=== PATIENT | female | born 1945 | race African-American/Black ===

== ENCOUNTER 2020-11-26 18:56 | Inpatient (IN) | payer OTHER, MEDICAID ==
[~2020-11-26] VITALS: Ht 152.4 cm; Wt 82.6 kg
[~2020-11-26 18:56] MED LIST: AMLO10TA80 PO; AMOX1TAB16 PO; ASCO500C15 PO; ATOR20TA65 PO; DOXA2TAB2 PO; FURO-151 PO; HYDR-4001 PO; HYDR100T26 PO; LISI-186 PO; METO-385 PO; P20 PO; SITA50TA3 PO
[2020-11-26] MEDS ORDERED: IPRATROPIUM BROMIDE (0.02%) 0.5MG/2.5ML NEB HHN STA (19:21)
[2020-11-26] MEDS ORDERED: METHYLPREDNISOLONE SOD SUCC 125 MG/2 ML VIAL IV STA (19:21)
[2020-11-26] MEDS ORDERED: ALBUTEROL (0.083%) 2.5MG/3ML NEB HHN STA (19:21)
[2020-11-26] MEDS ORDERED: MAGNESIUM 2 G PREMIX 50 ML IV STA (19:21)
[2020-11-26 20:48] LABS: BASOPHILS % 0.5 % (0.0-2.0); EOSINOPHILS % 0.7 % (0.0-5.0); HEMATOCRIT. 39.9 % (36.0-48.0); HEMOGLOBIN. 13.3 g/dL (12.0-16.0); LYMPHOCYTES % 23.9 % (20.0-50.0); MEAN CORPUSCULAR HEMOGLOBIN 28.8 pg (28.0-32.0); MEAN CORPUSCULAR VOLUME 86.6 fL (81.0-99.0); MEAN PLATELET VOLUME 7.2 fl (7.4-10.4); MONOCYTES % 4.8 % (2.0-8.0); NEUTROPHILS % 70.1 % (40.0-76.0); PLATELET 199 x1000/uL (130-400); RED BLOOD CELL COUNT 4.61 mill/uL (4.2-5.4)
[2020-11-26 20:56] LABS: CHLORIDE 110 mEq/L (98-107)
[2020-11-26 20:57] LABS: PROTHROMBIN TIME 11.1 sec (9.6-11.0)
[2020-11-26] MEDS ORDERED: FUROSEMIDE 40MG/4ML VIAL IVP ONE (21:30)
[2020-11-27] MEDS ORDERED: DILTIAZEM HCL 5MG/ML 5ML VIAL IV ONE (00:15)
[2020-11-27] MEDS ORDERED: HEPARIN 5000 UNITS/ML VIAL IV SCH (00:30)
[2020-11-27] MEDS ORDERED: HEPARIN 25,000 UNITS PREMIX 250 ML IV PRN (00:30)
[2020-11-27] MEDS ORDERED: HEPARIN 25,000 UNITS PREMIX 250 ML IV SCH (01:00)
[2020-11-27] MEDS ORDERED: HEPARIN BOLUS PRN aPTT 30-44 IV (01:00)
[2020-11-27] MEDS ORDERED: HEPARIN BOLUS PRN aPTT <30 IV (01:00)
[2020-11-27] MEDS ORDERED: HEPARIN 60 UNITS/KG BOLUS IV SCH (01:00)
[2020-11-27] MEDS ORDERED: ONDANSETRON HCL 4MG/2ML INJ IV PRN (09:15)
[2020-11-27] MEDS ORDERED: NALOXONE HCL 0.4MG/ML VIAL IV PRN (09:15)
[2020-11-27] MEDS ORDERED: MORPHINE SULFATE 2 MG/ML CPJ (NOT FOR IM USE) IV PRN (09:15)
[2020-11-27] MEDS ORDERED: IPRATROPIUM/ALBUTEROL 0.5-3(2.5)MG/3ML NEB HHN PRN (09:15)
[2020-11-27] MEDS ORDERED: DIPHENHYDRAMINE 50MG/ML VIAL IV PRN (09:15)
[2020-11-27 09:30] VITALS: BP 120/52
[2020-11-27 11:57] LABS: BG BASE EXCESS -6.6 mmol/L (-2.0-2.0); BG CARBOXYHEMOGLOBIN 0.5 % (0.5-1.5); BG DEOXYHEMOGLOBIN 3.5 % (0.0-5.0); BG FRACTION INSPIRED OXYGEN 36; BG HCO3 ACT 17.6 mmol/L (22.0-26.0); BG METHEMOGLOBIN 0.1 % (0.0-1.5); BG OXYGEN SATURATION 96.5 % (92.0-98.5); BG OXYHEMOGLOBIN 95.9 % (94.0-97.0); BG PCO2 31.5 mmHg (35.0-45.0); BG PH 7.365 (7.350-7.450); BG PO2 87.2 mmHg (75.0-100.0); BG SAMPLE SITE LEFT BRACHIAL; BG VENT MODE NASAL CANNULA
[2020-11-27 12:00] VITALS: BP 126/55
[2020-11-27] MEDS ORDERED: DEXTROSE 50% WATER 50ML SYRINGE IV PRN ×2 (13:00)
[2020-11-27] MEDS: INSULIN LISPRO 100 UNITS/ML SUBCUT SCH ×3 (13:28→21:00)
[2020-11-27 16:00] VITALS: BP 150/65
[2020-11-27 16:20] LABS: CREATINE KINASE MB FRACTION 11.2 ng/mL (0.5-3.6)
[2020-11-27] MEDS: BLOOD SUGAR DIAGNOSTIC STRIP TEST SCH ×2 (17:20→21:29)
[2020-11-27 20:00] VITALS: BP 193/72
[2020-11-27] MEDS ORDERED: LOPERAMIDE HCL 2MG CAPSULE PO PRN (21:00)
[2020-11-27] MEDS: DOXAZOSIN MESYLATE 2MG TABLET PO SCH (21:28)
[2020-11-27] MEDS: CLONIDINE 0.1MG TABLET PO PRN (21:28)
[2020-11-27 23:15] LABS: CREATINE KINASE MB FRACTION 12.3 ng/mL (0.5-3.6)
[2020-11-28] VITALS (11 sets, daily range): BP systolic 118–156; BP diastolic 45–84
[2020-11-28 02:52] LABS: HEMATOCRIT 38.1 % (36.0-48.0); HEMOGLOBIN 12.1 g/dL (12.0-16.0); PLATELET 164 x1000/uL (130-400); RED BLOOD CELL COUNT 4.33 mill/uL (4.2-5.4); RED CELL DISTRIBUTION WIDTH 14.5 % (11.6-14.6)
[2020-11-28 03:12] LABS: CHLORIDE 106 mEq/L (98-107)
[2020-11-28] MEDS: ACETAMINOPHEN 325MG TABLET PO PRN ×2 (04:14→10:17)
[2020-11-28] MEDS: BLOOD SUGAR DIAGNOSTIC STRIP TEST SCH ×4 (06:52→21:00)
[2020-11-28] MEDS ORDERED: FUROSEMIDE 40MG/4ML VIAL IVP SCH (08:00)
[2020-11-28] MEDS: PREDNISONE 20MG TABLET PO SCH ×2 (08:03→17:42)
[2020-11-28] MEDS: INSULIN LISPRO 100 UNITS/ML SUBCUT SCH ×4 (08:04→21:00)
[2020-11-28] MEDS ORDERED: HEPARIN 25,000 UNITS PREMIX 250 ML IV SCH ×2 (08:30→08:45)
[2020-11-28] MEDS ORDERED: HEPARIN BOLUS PRN aPTT 30-44 IV (08:45)
[2020-11-28] MEDS ORDERED: HEPARIN BOLUS PRN aPTT <30 IV (08:45)
[2020-11-28] MEDS ORDERED: LISINOPRIL 5MG TABLET PO SCH (09:00)
[2020-11-28] MEDS ORDERED: MEDICATION NOT ON FORMULARY EA (Sitagliptin Phosphate (Januvia) 1 TAB) PO SCH (09:00)
[2020-11-28] MEDS ORDERED: ATORVASTATIN CALCIUM 20MG TABLET PO SCH (09:00)
[2020-11-28] MEDS ORDERED: LIDOCAINE HCL 1% 20ML VIAL (Pyxis) INJ ONE (09:14)
[2020-11-28 09:45] LABS: BASOPHILS % 0.1 % (0.0-2.0); HEMATOCRIT. 34.5 % (36.0-48.0); HEMOGLOBIN. 11.2 g/dL (12.0-16.0); LYMPHOCYTES % 9.7 % (20.0-50.0); MEAN CORPUSCULAR HEMOGLOBIN 28.6 pg (28.0-32.0); MEAN CORPUSCULAR VOLUME 87.9 fL (81.0-99.0); MEAN PLATELET VOLUME 7.6 fl (7.4-10.4); MONOCYTES % 5.7 % (2.0-8.0); NEUTROPHILS % 84.5 % (40.0-76.0); PLATELET 175 x1000/uL (130-400); RED BLOOD CELL COUNT 3.92 mill/uL (4.2-5.4); RED CELL DISTRIBUTION WIDTH 14.3 % (11.6-14.6)
[2020-11-28 09:48] LABS: CHLORIDE 107 mEq/L (98-107)
[2020-11-28 09:57] LABS: LDL CHOLESTEROL 37 mg/dL (5-100); PHOSPHORUS 3.3 mg/dL (2.5-4.9)
[2020-11-28 09:59] LABS: HDL CHOLESTEROL 57 mg/dL (40-59)
[2020-11-28] MEDS: HYDRALAZINE HCL 100MG TABLET PO SCH ×2 (10:14→17:43)
[2020-11-28] MEDS: LINAGLIPTIN 5MG TABLET PO SCH (10:14)
[2020-11-28] MEDS: AMLODIPINE 10MG TABLET PO SCH (10:17)
[2020-11-28] MEDS ORDERED: DEXTROSE 50% WATER 50ML SYRINGE IV NR (18:30)
[2020-11-28] MEDS ORDERED: INSULIN REGULAR (HUMULIN R) UD 100 UNITS/ML SYR IV NR (18:30)
[2020-11-28] MEDS ORDERED: SODIUM POLYSTYRENE SULFONATE 15 G/60 ML BOT PO NR (18:30)
[2020-11-28] MEDS: DOXAZOSIN MESYLATE 2MG TABLET PO SCH (21:00)
[2020-11-29] VITALS (12 sets, daily range): BP systolic 133–179; BP diastolic 55–134
[2020-11-29] MEDS: ACETAMINOPHEN 325MG TABLET PO PRN (06:17)
[2020-11-29] MEDS: CLONIDINE 0.1MG TABLET PO PRN (06:25)
[2020-11-29] MEDS: BLOOD SUGAR DIAGNOSTIC STRIP TEST SCH ×4 (06:50→20:11)
[2020-11-29] MEDS: INSULIN LISPRO 100 UNITS/ML SUBCUT SCH ×4 (07:20→20:20)
[2020-11-29] MEDS: PREDNISONE 20MG TABLET PO SCH ×2 (08:43→17:41)
[2020-11-29] MEDS: LINAGLIPTIN 5MG TABLET PO SCH (08:44)
[2020-11-29] MEDS: AMLODIPINE 10MG TABLET PO SCH (08:44)
[2020-11-29] MEDS: HYDRALAZINE HCL 100MG TABLET PO SCH ×2 (08:44→17:41)
[2020-11-29 10:07] LABS: BASOPHILS % 0.1 % (0.0-2.0); HEMATOCRIT. 34.6 % (36.0-48.0); HEMOGLOBIN. 11.4 g/dL (12.0-16.0); LYMPHOCYTES % 7.3 % (20.0-50.0); MEAN CORPUSCULAR HEMOGLOBIN 28.3 pg (28.0-32.0); MEAN CORPUSCULAR VOLUME 85.7 fL (81.0-99.0); MEAN PLATELET VOLUME 8.3 fl (7.4-10.4); MONOCYTES % 3.6 % (2.0-8.0); PLATELET 175 x1000/uL (130-400); RED BLOOD CELL COUNT 4.03 mill/uL (4.2-5.4); RED CELL DISTRIBUTION WIDTH 14.5 % (11.6-14.6)
[2020-11-29 10:28] LABS: PHOSPHORUS 3.8 mg/dL (2.5-4.9)
[2020-11-29 17:01] LABS: HEPATITIS B SURFACE ANTIGEN NEGATIVE
[2020-11-29] MEDS: DOXAZOSIN MESYLATE 2MG TABLET PO SCH (20:10)
[2020-11-29] MEDS ORDERED: FAMOTIDINE 20MG TABLET PO SCH (21:00)
[2020-11-30] VITALS (10 sets, daily range): BP systolic 145–175; BP diastolic 48–80
[2020-11-30] MEDS: BLOOD SUGAR DIAGNOSTIC STRIP TEST SCH ×2 (06:50→12:46)
[2020-11-30 07:17] LABS: HEMATOCRIT. 35.7 % (36.0-48.0); HEMOGLOBIN. 11.7 g/dL (12.0-16.0); MEAN CORPUSCULAR HEMOGLOBIN 28.5 pg (28.0-32.0); MEAN CORPUSCULAR VOLUME 86.5 fL (81.0-99.0); MEAN PLATELET VOLUME 7.9 fl (7.4-10.4); PLATELET 157 x1000/uL (130-400); RED BLOOD CELL COUNT 4.13 mill/uL (4.2-5.4); RED CELL DISTRIBUTION WIDTH 14.5 % (11.6-14.6)
[2020-11-30] MEDS: PREDNISONE 20MG TABLET PO SCH (09:26)
[2020-11-30] MEDS: LINAGLIPTIN 5MG TABLET PO SCH (09:26)
[2020-11-30] MEDS: HYDRALAZINE HCL 100MG TABLET PO SCH (09:26)
[2020-11-30] MEDS: AMLODIPINE 10MG TABLET PO SCH (09:26)
[2020-11-30] MEDS: INSULIN LISPRO 100 UNITS/ML SUBCUT SCH ×2 (09:27→12:59)
[2020-11-30] MEDS ORDERED: P20 MT (11:29)
[2020-11-30] MEDS ORDERED: HYDR100T26 PO (11:29)
[2020-11-30] MEDS ORDERED: FAMO20TA8 MT (11:29)
[2020-11-30] MEDS ORDERED: APIX2.5T MT (11:30)
[2020-11-30] MEDS ORDERED: ASPI-1406 MT (12:25)
[2020-11-30 14:58] LABS: PLATELET ESTIMATE NORMAL
== END 2020-11-30 14:54 | disposition home or self-care (01) | DRG 280 ==
LOC: ER 18:56 → MICUSO 11-27 00:33 → EDBEDREQ 11-27 00:40 → EDBEDREQDT 11-27 00:40 → EDBEDREQTM 11-27 00:40 → 6WST 11-27 05:35 → 3WST 11-28 03:02
PROVIDERS: ADMIT Internal Medicine; ATTEND Internal Medicine
PROC: 02HV33Z Insertion of Infusion Device into Superior Vena Cava, Percutaneous Approach (ICD-10-PCS; principal; 2020-11-28)
PROC: B548ZZA Ultrasonography of Superior Vena Cava, Guidance (ICD-10-PCS; 2020-11-28)
DX: I21.4 Non-ST elevation (NSTEMI) myocardial infarction (principal); J96.21 Acute and chronic respiratory failure with hypoxia; I50.33 Acute on chronic diastolic (congestive) heart failure; N18.4 Chronic kidney disease, stage 4 (severe); N25.81 Secondary hyperparathyroidism of renal origin; J44.1 Chronic obstructive pulmonary disease with (acute) exacerbation; I13.0 Hypertensive heart and chronic kidney disease with heart failure and stage 1 through stage 4 chronic kidney disease, or unspecified chronic kidney disease; N17.9 Acute kidney failure, unspecified; I42.0 Dilated cardiomyopathy; I48.0 Paroxysmal atrial fibrillation; E87.5 Hyperkalemia; E78.5 Hyperlipidemia, unspecified; E11.22 Type 2 diabetes mellitus with diabetic chronic kidney disease; Z20.822 Contact with and (suspected) exposure to COVID-19; G43.909 Migraine, unspecified, not intractable, without status migrainosus; I27.20 Pulmonary hypertension, unspecified; D72.829 Elevated white blood cell count, unspecified; T38.0X5A Adverse effect of glucocorticoids and synthetic analogues, initial encounter; R74.01 Elevation of levels of liver transaminase levels; E66.9 Obesity, unspecified; E87.8 Other disorders of electrolyte and fluid balance, not elsewhere classified; I08.1 Rheumatic disorders of both mitral and tricuspid valves; F40.240 Claustrophobia; Z53.20 Procedure and treatment not carried out because of patient's decision for unspecified reasons; Z82.49 Family history of ischemic heart disease and other diseases of the circulatory system; Z86.73 Personal history of transient ischemic attack (TIA), and cerebral infarction without residual deficits; Z99.81 Dependence on supplemental oxygen; Z87.891 Personal history of nicotine dependence; Z79.899 Other long term (current) drug therapy; Y92.89 Other specified places as the place of occurrence of the external cause; Z68.35 Body mass index [BMI] 35.0-35.9, adult; R00.1 Bradycardia, unspecified
CPT/HCPCS: 36415; 36600; 71045; 76700; 76770; 76937; 78582; 80048; 80053; 80061; 80076; 82140; 82375; 82550; 82553; 82805; 82962; 83036; 83605; 83735; 83880; 84100; 84132; 84145; 84443; 84484; 85025; 85027; 86705; 86709; 86803; 87340; 87426; 93005; 93306; 93970; 94640; 97162; 97166; 97530; 99291; A9558; C1725; C1769; J1200; J1644; J1815; J1940; J2405; J2930; J3475; J3490; J7040; J7512; A4315